=== PATIENT | female | born 1950 | race Caucasian/White ===

== ENCOUNTER 2016-10-13 19:33 | Emergency (ER) | payer OTHER ==
[2016-10-13] MEDS ORDERED: KETOROLAC TROMETHAMINE 60 MG/2 ML VIAL IM ONE (19:37)
--- NOTE | 2016-10-13 19:37 | PDOC ---
Rapid Medical Evaluation Time Seen by Provider: 10/13/16 19:36 Medical Evaluation: I have performed a brief in-person evaluation of this patient. The patient presents with a chief complaint of: slip and fall onto right hand now with right wrist pain Pertinent physical exam findings: obvious deformity of right distal radius area with TTP. I have ordered the following: xray right wrist/hand/forearm, IM Toradol The patient will proceed to the ED for further evaluation.
[2016-10-13 19:40] VITALS: BP 147/65; PULSE 69; BMI 24.0
--- NOTE | 2016-10-13 20:35 | PDOC ---
History of Present Illness - General Chief Complaint: Pain Stated Complaint: FALL INJURTY TO HAND Time Seen by Provider: 10/13/16 19:36 History Source: Patient Exam Limitations: No Limitations - History of Present Illness Initial Comments: CHIEF COMPLAINT: 66 y/o afebrile female c/o right wrist pain s/p slip and fall onto right hand this evening. HISTORY OF PRESENT ILLNESS: The patient denies head trauma, dizziness, changes in vision/hearing, numbness/tingling in right fingers, and all other symptoms. The patient is not on a blood thinner. Vital signs on arrival are within normal limits. REVIEW OF SYSTEMS: GENERAL/CONSTITUTIONAL: No fever/chills. No weakness. No weight change. MUSCULOSKELETAL: +right wrist pain and swelling. No neck or back pain. SKIN: No rash or easy bruising. NEUROLOGIC: No headache, vertigo, loss of consciousness, or loss of sensation. PHYSICAL EXAM: VITAL_SIGNS: within normal limits GENERAL_APPEARANCE: alert, cooperative, mild obvious discomfort. MENTAL_STATUS: speech clear, oriented X 3, responds appropriately to questions. NEURO: motor intact and sensory intact in injured extremity. EXTREMITIES: Obvious deformity of right distal radius that is TTP. Pt is holding her right hand and refuses to move it. Full range of motion of fingers of right hand. No erythema or significant swelling to affected area. SKIN: warm, dry, good color. Past History - Past Medical History Allergies/Adverse Reactions: Allergies Allergy/AdvReac Type Severity Reaction Status Date / Time No Known Allergies Allergy Verified 10/13/16 19:36 Home Medications: Ambulatory Orders Losartan 50Mg/Hctz 12.5MG [Hyzaar -] 50 mg PO ASDIR 10/13/16 Rosuvastatin [Crestor -] 20 mg PO ASDIR 10/13/16 GI Disorders: Yes (GERD) HTN: Yes Hypercholesterolemia: Yes - Surgical History Cholecystectomy: Yes - Psycho/Social/Smoking Cessation Hx Suicidal Ideation: No Smoking History: Never smoked Information on smoking cessation initiated: No Substance Use Type: None *Physical Exam - Vital Signs Last Vital Signs Temp Pulse Resp BP Pulse Ox 97.5 F L 69 20 147/65 100 10/13/16 19:37 10/13/16 19:37 10/13/16 19:37 10/13/16 19:37 10/13/16 19:37 Procedures - Splinting Splint Location: Right: Wrist Pre-Proc Neuro Vasc Exam: normal Hand-Made Type: orthoglass Splint Type: Yes: Ulnar (ulnar gutter with sugar tong) Post-Proc Neuro Vasc Exam: normal Reji Bandage: yes, 3" Sling: Yes Complications: No ED Treatment Course - RADIOLOGY Radiology Studies Ordered: Category Date Time Status FOREARM- RIGHT [RAD] Stat Radiology 10/13/16 19:37 Ordered WRIST W/HAND-RIGHT* [RAD] Stat Radiology 10/13/16 19:37 Ordered Medical Decision Making - Medical Decision Making A/P: 66 y/o female with most likely right distal radius fracture. Plan is as follows: 1. Xray right wrist/hand/forearm 2. IM toradol Xray right wrist/hand/forearm IMPRESSION: distal radial fracture with posterior displacement and a slightly displaced avulsion fracture of the ulnar styloid process with regional soft tissue swelling. The arm was splinted by [facility] and patient tolerated well. Arm put into a splint. Dr. Prakash was consulted and he suggested follow up in his office JANEEN. Pt instructed to call Dr. Prakash's office tomorrow for immediate follow up appointment and return to the ER with any worsening or concerning symptoms. The patient verbalizes understanding of all instructions, has no further questions and is awaiting discharge. *DC/Admit/Observation/Transfer Diagnosis at time of Disposition: Distal radius fracture, right Qualifiers: Encounter type: initial encounter Fracture type: closed Fracture morphology: unspecified fracture morphology Qualified Code(s): S52.501A - Unspecified fracture of the lower end of right radius, initial encounter for closed fracture - Discharge Dispostion Disposition: HOME Condition at time of disposition: Improved - Referrals Referrals: Rodriguez Calloway [Primary Care Provider] - Juan Prakash MD [Staff Physician] - Call tomorrow - Patient Instructions Printed Discharge Instructions: DI for Forearm Fracture, How to Use a Sling Additional Instructions: Discharge Instructions: -Call Dr. Prakash tomorrow to schedule follow up appointment as soon as possible. -Take Tylenol/Acetaminophen for pain -Return to the ER with any worsening or concerning symptoms
[2016-10-13] MEDS ORDERED: KETOROLAC TROMETHAMINE 60 MG/2 ML VIAL ONE (20:38)
[2016-10-13 21:38] VITALS: TEMP 98.1
== END 2016-10-13 21:39 | disposition home or self-care (01) ==
LOC: JER 19:33
PROC: 3E0233Z Introduction of Anti-inflammatory into Muscle, Percutaneous Approach (ICD-10-PCS; principal; 2016-10-13)
PROC: 2W3CX1Z Immobilization of Right Lower Arm using Splint (ICD-10-PCS; 2016-10-13)
DX: S52.591A Other fractures of lower end of right radius, initial encounter for closed fracture (principal); S52.611A Displaced fracture of right ulna styloid process, initial encounter for closed fracture; W01.0XXA Fall on same level from slipping, tripping and stumbling without subsequent striking against object, initial encounter; Y93.89 Activity, other specified; Y92.89 Other specified places as the place of occurrence of the external cause
CPT/HCPCS: 73090-TC-RT; 73110-TC-RT; 73130-TC-RT; 99281-25

== ENCOUNTER 2018-01-20 10:54 | Day surgery (SDC) | payer OTHER ==
[2018-01-19 13:37] VITALS: BMI 24.0
[2018-01-20] MEDS ORDERED: MIDAZOLAM HCL 2 MG/2 ML SINGLE DOSE VIAL ONE ×2 (13:07→13:08)
[2018-01-20] MEDS ORDERED: PROPOFOL 20 ML ONE (13:09)
[2018-01-20] MEDS ORDERED: LIDOCAINE HCL/PF 2% SDV 5ML VIAL ONE (13:09)
[2018-01-20] MEDS ORDERED: ACETAMINOPHEN 325 MG TABLET (FP) PO PRN (15:05)
[2018-01-20] MEDS ORDERED: ONDANSETRON 4 MG/2 ML VIAL IVPUSH PRN (15:05)
[2018-01-20] MEDS ORDERED: oxyCODONE HCL 5 MG TABLET PO PRN ×2 (15:05)
[2018-01-20] MEDS ORDERED: oxyCODONE HCL 5 MG TABLET ONE (15:07)
[2018-01-20] MEDS ORDERED: LACTATED RINGERS SOLUTION 1,000 ML IV SCH (15:15)
[2018-01-20 15:56] VITALS: BP 132/72; PULSE 66; TEMP 97.9
--- NOTE | 2018-01-20 21:02 | OP ---
DATE OF OPERATION: DATE OF DICTATION: 01/20/2018 PREOPERATIVE DIAGNOSIS: Left josh distraction. POSTOPERATIVE DIAGNOSIS: Left jsoh distraction. PROCEDURE: Left wrist closed reduction and casting. SURGEON: Juan Downing MD ANESTHESIA: Sedation. POSTOPERATIVE CONDITION: Stable. INDICATIONS: This is a pleasant woman who suffered a trip and fall onto her wrist. She had a dorsally angled and displaced fracture. Treatment options including operative versus closed reduction versus splinting were discussed. After having a thorough review of the options, the patient elected for closed reduction. We reviewed the biggest risk of closed reduction is loss of reduction in the cast, which could result in either nonunion or need to convert to an open procedure at a later date. The patient was understanding and elected to proceed. DESCRIPTION OF PROCEDURE: The patient was brought to the OR where sedation was administered. Left upper extremity was then hung in traction. A manual reduction was . A well-padded short-arm cast with a 3-point mold was now placed. Fluoroscopy was used to confirm fracture reduction. This was satisfactory. The patient was transferred to the recovery room in stable condition. JUAN DOWNING M.D. [id number]
== END 2018-01-20 15:45 | disposition home or self-care (01) ==
LOC: FASU 10:54
PROVIDERS: ATTEND Orthopaedic Surgery Sports Medicine
PROC: 0PSJXZZ Reposition Left Radius, External Approach (ICD-10-PCS; principal; 2018-01-20 14:30)
DX: S52.502A Unspecified fracture of the lower end of left radius, initial encounter for closed fracture (principal); W01.0XXA Fall on same level from slipping, tripping and stumbling without subsequent striking against object, initial encounter; Y93.9 Activity, unspecified; Y92.9 Unspecified place or not applicable
CPT/HCPCS: 73110-TC-LR-FY

== ENCOUNTER 2023-12-01 10:46 | Day surgery (SDC) | payer OTHER, BC ==
[2023-11-25 14:14] VITALS: BMI 20.5
[2023-12-01 12:24] VITALS: TEMP 97
[2023-12-01 12:39] VITALS: RESP 16
[2023-12-01 12:41] VITALS: BP 119/64; PULSE 62
== END 2023-12-01 13:08 | disposition home or self-care (01) ==
LOC: FASU-ENDO 10:46
PROVIDERS: ATTEND Internal Medicine Gastroenterology
PROC: 0DB68ZX Excision of Stomach, Via Natural or Artificial Opening Endoscopic, Diagnostic (ICD-10-PCS; 2023-12-01)
PROC: 0DB48ZX Excision of Esophagogastric Junction, Via Natural or Artificial Opening Endoscopic, Diagnostic (ICD-10-PCS; 2023-12-01)
PROC: 0DB98ZX Excision of Duodenum, Via Natural or Artificial Opening Endoscopic, Diagnostic (ICD-10-PCS; principal; 2023-12-01 12:15)
DX: K29.50 Unspecified chronic gastritis without bleeding (principal); K20.90 Esophagitis, unspecified without bleeding; R10.13 Epigastric pain
CPT/HCPCS: 88305-TC; 88342-TC